=== PATIENT | male | born 1990 | race Caucasian/White ===

== ENCOUNTER 2024-08-31 12:05 | Inpatient (IN) | payer BC ==
--- NOTE | 2024-08-31 12:31 | ED ---
Psych HPI - General Source: patient, RN notes reviewed Mode of arrival: ambulatory <China Mendez - Last Filed: 08/31/24 12:30> <Florida Mayer - Last Filed: 09/01/24 16:19> - General Chief Complaint: Psychiatric Symptoms Stated Complaint: Back Pain Time Seen by Provider: 08/31/24 12:30 - History of Present Illness Initial Comments: Quick note: 33-year-old male presented the ER for evaluation of SI. Patient states he is recently and very depressed due to this. No plan. Patient does smoke marijuana. No other drugs or alcohol. No current pain. (China Mendez) Patient is a pleasant 33-year-old male presenting today for suicidal thoughts. Patient's him unexpectedly about 2 to 3 months ago. Since then he has been thinking of killing himself. The thoughts become more persistent and is having difficulty sleeping. He does not have a specific plan in place but feels scared that he will harm himself. Denies any illicit drug use or alcohol use today. Was smoking marijuana about 2 weeks ago. Says that he has been seen in the hospital for similar issues in the past. He is not currently on any medications. He is does not have access to weapons. Denies thoughts of wanting to harm or kill others. Denies auditory or visual hallucinations. Denies fevers, headache, focal numbness or weakness, chest pain or additional complaints. (Florida Mayer) - Related Data Home Medications Medication Instructions Recorded Confirmed No Known Home Medications 08/31/24 08/31/24 Allergies Allergy/AdvReac Type Severity Reaction Status Date / Time No Known Allergies Allergy Verified 08/31/24 17:38 Review of Systems ROS Other: All systems not noted in ROS Statement are negative. <China Mendez - Last Filed: 08/31/24 12:30> ROS Other: All systems not noted in ROS Statement are negative. <Florida Mayer - Last Filed: 09/01/24 16:19> ROS Statement: Those systems with pertinent positive or pertinent negative responses have been documented in the HPI. Past Medical History Past Medical History: No Reported History History of Any Multi-Drug Resistant Organisms: None Reported Past Surgical History: No Surgical Hx Reported Past Psychological History: No Psychological Hx Reported Smoking Status: Current every day smoker Past Alcohol Use History: Occasional Past Drug Use History: Marijuana <China Mendez - Last Filed: 08/31/24 12:30> General Exam Limitations: no limitations <China Mendez - Last Filed: 08/31/24 12:30> <Florida Mayer - Last Filed: 09/01/24 16:19> - General Exam Comments Initial Comments: Visual Physical Exam Vital signs reviewed General: Well-appearing, nontoxic, no acute distress. Withdrawn Head: Normocephalic, atraumatic Eyes: PERRLA, EOMI ENT: Airway patent Chest: Nonlabored breathing Skin: No visual rash, normal skin tone Neuro: Alert and oriented 3 Musculoskeletal: No gross abnormalities (China Mendez) Vital signs reviewed General: Well-appearing, nontoxic, no acute distress. Head: Normocephalic, atraumatic Eyes: PERRLA, EOMI ENT: Airway patent Chest: Nonlabored breathing, lungs clear to auscultation bilaterally, no wheezes rales rhonchi or stridor Skin: No visual rash, normal skin tone Neuro: Alert and oriented 3 Psychiatric: Calm and cooperative, makes poor eye contact, withdrawn and depressed affect, does not appear to be responding internal stimuli Musculoskeletal: No gross abnormalities (Florida Mayer) Course Vital Signs 08/31/24 08/31/24 08/31/24 12:07 15:55 18:07 Temperature 97.9 F 98.6 F Pulse Rate 86 73 76 Respiratory 18 20 16 Rate Blood Pressure 144/90 120/74 120/69 O2 Sat by Pulse 98 99 96 Oximetry Medical Decision Making <China Mendez - Last Filed: 08/31/24 12:30> - Lab Data Result diagrams: 09/01/24 09:11 09/01/24 09:11 <Florida Mayer - Last Filed: 09/01/24 16:19> - Medical Decision Making I performed the quick note portion of this chart. Electronically signed by China Mendez PA-C (China Mendez) Was pt. sent in by a medical professional or institution (COBY Davis, COMPARATOR OPERATOR, urgent care, hospital, or halfway...) When possible be specific @ -No Did you speak to anyone other than the patient for history (EMS, parent, family, police, friend...)? What history was obtained from this source @ -No Did you review nursing and triage notes (agree or disagree)? Why? @ -I reviewed nursing and triage notes Were old charts reviewed (outside hosp., previous admission, EMS record, old EKG, old radiological studies, urgent care reports/EKG's, halfway records)? Report findings @ -Medical records reviewed no recent visits to emergency department to review Differential Diagnosis (chest pain, altered mental status, abdominal pain women, abdominal pain men, vaginal bleeding, weakness, fever, dyspnea, syncope, headache, dizziness, GI bleed, back pain, seizure, CVA, palpatations, mental health, musculoskeletal)? @Differential Mental Health Depression, anxiety, bipolar, psychosis, schizophrenia, borderline personality, situational depression, adjustment disorder, behavioral disorder, brain tumor, malingering, substance abuse, encephalopathy, medication reaction, dementia, hypothyroidism, degenerative neurologic disorder, lupus.... This is not meant to be all-inclusive list EKG interpreted by me (3pts min.). @ -As above X-rays interpreted by me (1pt min.). @ -None done CT interpreted by me (1pt min.). @ -None done U/S interpreted by me (1pt. min.). @ -None done What testing was considered but not performed or refused? (CT, X-rays, U/S, labs)? Why? @ -None What meds were considered but not given or refused? Why? @ -None Did you discuss the management of the patient with other professionals (professionals i.e. , PA, COMPARATOR OPERATOR, lab, RT, psych nurse, high school social science teacher, information systems supervisor, teacher, community service officer, case assistant)? Give summary @Case discussed with RODRÍGUEZ Stein RN, patient will be voluntarily admitted to inpatient psychiatric floor Was smoking cessation discussed for >3mins.? @ -No Was critical care preformed (if so, how long)? @ -No Were there social determinants of health that impacted care today? How? (Homelessness, low income, unemployed, alcoholism, drug addiction, transportation, low edu. Level, literacy, decrease access to med. care, long term, rehab)? @ -No Was there de-escalation of care discussed even if they declined (Discuss DNR or withdrawal of care, Hospice)? @ -No What co-morbidities impacted this encounter? (DM, HTN, Smoking, COPD, CAD, Cancer, CVA, ARF, Chemo, Hep., AIDS, mental health diagnosis, sleep apnea, morbid obesity)? @ no Was patient admitted / discharged? Hospital course, mention meds given and route, prescriptions, significant lab abnormalities, going to OR and other pertinent info. @ -Admission to inpatient psych -this is a pleasant 33-year-old gentleman presenting today for suicidal thoughts. Patient seen and assessed in a hallway bed and was agreeable with providing history and having physical exam obtained in hallway. He does have a depressed and withdrawn affect and makes poor eye contact. He is calm and cooperative and does not appear to be responding to internal stimuli. Discussed with patient plan for EPS evaluation. He is agreeable plan of care. Pt evaluated by EPS RN. Patient will be voluntarily admitted to inpatient psychiatric floor. Patient admitted in stable condition Undiagnosed new problem with uncertain prognosis? @ -No Drug Therapy requiring intensive monitoring for toxicity (Heparin, Nitro, Insulin, Cardizem)? @ -No Were any procedures done? @ -No Diagnosis/symptom? Suicidal ideation Acute, or Chronic, or Acute on Chronic? @Acute Uncomplicated (without systemic symptoms) or Complicated (systemic symptoms)? @Uncomplicated Side effects of treatment? @ -No Exacerbation, Progression, or Severe Exacerbation? @ -No Poses a threat to life or bodily function? How? (Chest pain, [place], [place], pneumonia, PE, COPD, DKA, ARF, appy, cholecystitis, CVA, Diverticulitis, Homicidal, Suicidal, threat to staff... and all critical care pts) @ -Yes (Florida Mayer) - Lab Data Lab Results 08/31/24 08/31/24 Range/Units 15:34 16:55 Urine Opiates Screen Not Detected (NotDetected) Ur Oxycodone Screen Not Detected (NotDetected) Urine Methadone Screen Not Detected (NotDetected) Ur Barbiturates Screen Not Detected (NotDetected) U Tricyclic Antidepress Not Detected (NotDetected) Ur Phencyclidine Scrn Not Detected (NotDetected) Ur Amphetamines Screen Not Detected (NotDetected) U Methamphetamines Scrn Not Detected (NotDetected) U Benzodiazepines Scrn Not Detected (NotDetected) Urine Cocaine Screen Not Detected (NotDetected) U Marijuana (THC) Screen Detected H (NotDetected) SARS-CoV-2 (PCR) Not Detected (Not Detectd) Disposition <China Mendez - Last Filed: 08/31/24 12:30> <Florida Mayer - Last Filed: 09/01/24 16:19> Clinical Impression: Suicidal ideation, Depression Disposition: TRANSFER TO PSYCH HOSP/UNIT Condition: Stable
[2024-08-31 15:52] LABS: Amphetamine Screen,Urine Not Detected (NotDetected); Barbiturate Screen,Urine Not Detected (NotDetected); Benzodiazepines Screen,Urine Not Detected (NotDetected); Cocaine Screen,Urine Not Detected (NotDetected); Methadone Screen, Urine Not Detected (NotDetected); Opiate Screen,Urine Not Detected (NotDetected); Oxycodone Screen, Urine Not Detected (NotDetected); Phencyclidine Screen,Urine Not Detected (NotDetected); Tricyclic Antidepressant,Urine Not Detected (NotDetected); Urn Cannabinoid Scrn Detected (NotDetected)
[2024-08-31] MEDS ORDERED: MAGNESIUM HYDROXIDE 2,400 MG/30 ML CUP PO PRN (18:42)
[2024-08-31] MEDS ORDERED: ACETAMINOPHEN TAB 325 MG TAB PO PRN (18:42)
[2024-08-31] MEDS ORDERED: MAG HYDROX/AL HYDROX/SIMETH 355 ML BOTTLE PO PRN (18:42)
[2024-08-31] MEDS ORDERED: IBUPROFEN 600 MG TAB PO PRN (18:42)
[2024-08-31] MEDS ORDERED: LORazepam 2 MG/ML INJ IM PRN (18:44)
[2024-08-31] MEDS ORDERED: HALOPERIDOL LACTATE 5 MG/ML 1 ML VIAL IM PRN (18:44)
[2024-08-31] MEDS ORDERED: haloperidoL 5 MG TAB PO PRN (18:44)
[2024-08-31] MEDS ORDERED: LORazepam 1 MG TAB PO PRN (18:44)
[2024-08-31 21:46] LABS: Appearance,Urine Clear (Clear); Bilirubin,Urine Negative (Negative); Blood,Urine Negative (Negative); Color,Urine Light Yellow; Glucose,Urine (UA) Negative (Negative); Ketones,Urine Trace (Negative); Leukocyte Esterase,Urine Negative (Negative); Nitrite,Urine Negative (Negative); Protein,Urine Negative (Negative); Specific Gravity,Urine 1.015 (1.001-1.035); Urobilinogen,Urine <2.0 mg/dL (<2.0)
[2024-09-01 10:10] LABS: Basophils % (A) 1 %; Eosinophils # (A) 0.2 k/uL (0-0.7); Eosinophils % (A) 2 %; HCT 52.5 % (39.0-53.0); HGB 16.8 gm/dL (13.0-17.5); Lymphocytes # (A) 1.7 k/uL (1.0-4.8); Lymphocytes % (A) 25 %; MCH 29.5 pg (25.0-35.0); MCHC 31.9 g/dL (31.0-37.0); MCV 92.3 fL (80.0-100.0); Mean Platelet Volume 7.2; Monocytes # (A) 0.4 k/uL (0-1.0); Monocytes % (A) 6 %; Neutrophils # (A) 4.5 k/uL (1.3-7.7); Neutrophils % (A) 65 %; Platelet Count 229 k/uL (150-450); RBC 5.69 m/uL (4.30-5.90); RDW 12.8 % (11.5-15.5)
[2024-09-01 10:54] LABS: ALT 17 U/L (4-49); AST 20 U/L (17-59); African American GFR (CKD) >90 (>60 ml/min/1.73 sqM); Alkaline Phosphatase 58 U/L (38-126); Anion Gap 11 mmol/L; Blood Urea Nitrogen 20 mg/dL (9-20); Calcium 9.8 mg/dL (8.4-10.2); Carbon Dioxide 30 mmol/L (22-30); Chloride 101 mmol/L (98-107); Glucose 94 mg/dL (74-99); Non-African American GFR(CKD) >90 (>60 ml/min/1.73 sqM); Potassium 4.2 mmol/L (3.5-5.1); Sodium 142 mmol/L (137-145); Total Bilirubin 0.8 mg/dL (0.2-1.3); Total Protein 7.4 g/dL (6.3-8.2)
--- NOTE | 2024-09-01 11:57 | P.HP ---
Psychiatric H&P - . H&P Date: 09/01/24 History & Physical: Allergies Allergy/AdvReac Type Severity Reaction Status Date / Time No Known Allergies Allergy Verified 08/31/24 17:38 Vital Signs Temp 98.1 F 08/31/24 19:29 Pulse 64 08/31/24 19:29 Resp 16 08/31/24 19:29 BP 113/64 08/31/24 19:29 Pulse Ox 98 08/31/24 19:29 FiO2 Intake & Output 08/31/24 09/01/24 09/01/24 18:59 06:59 18:59 Weight 58.967 kg 57.238 kg Laboratory Last Values WBC 7.0 k/uL (3.8-10.6) 09/01/24 09:11 RBC 5.69 m/uL (4.30-5.90) 09/01/24 09:11 Hgb 16.8 gm/dL (13.0-17.5) 09/01/24 09:11 Hct 52.5 % (39.0-53.0) 09/01/24 09:11 MCV 92.3 fL (80.0-100.0) 09/01/24 09:11 MCH 29.5 pg (25.0-35.0) 09/01/24 09:11 MCHC 31.9 g/dL (31.0-37.0) 09/01/24 09:11 RDW 12.8 % (11.5-15.5) 09/01/24 09:11 Plt Count 229 k/uL (150-450) 09/01/24 09:11 MPV 7.2 09/01/24 09:11 Neutrophils % 65 % 09/01/24 09:11 Lymphocytes % 25 % 09/01/24 09:11 Monocytes % 6 % 09/01/24 09:11 Eosinophils % 2 % 09/01/24 09:11 Basophils % 1 % 09/01/24 09:11 Neutrophils # 4.5 k/uL (1.3-7.7) 09/01/24 09:11 Lymphocytes # 1.7 k/uL (1.0-4.8) 09/01/24 09:11 Monocytes # 0.4 k/uL (0-1.0) 09/01/24 09:11 Eosinophils # 0.2 k/uL (0-0.7) 09/01/24 09:11 Basophils # 0.0 k/uL (0-0.2) 09/01/24 09:11 Sodium 142 mmol/L (137-145) 09/01/24 09:11 Potassium 4.2 mmol/L (3.5-5.1) 09/01/24 09:11 Chloride 101 mmol/L (98-107) 09/01/24 09:11 Carbon Dioxide 30 mmol/L (22-30) 09/01/24 09:11 Anion Gap 11 mmol/L 09/01/24 09:11 BUN 20 mg/dL (9-20) 09/01/24 09:11 Creatinine 0.98 mg/dL (0.66-1.25) 09/01/24 09:11 Est GFR (CKD-EPI)AfAm >90 (>60 ml/min/1.73 sqM) 09/01/24 09:11 Est GFR (CKD-EPI)NonAf >90 (>60 ml/min/1.73 sqM) 09/01/24 09:11 Glucose 94 mg/dL (74-99) 09/01/24 09:11 Calcium 9.8 mg/dL (8.4-10.2) 09/01/24 09:11 Total Bilirubin 0.8 mg/dL (0.2-1.3) 09/01/24 09:11 AST 20 U/L (17-59) 09/01/24 09:11 ALT 17 U/L (4-49) 09/01/24 09:11 Alkaline Phosphatase 58 U/L (38-126) 09/01/24 09:11 Total Protein 7.4 g/dL (6.3-8.2) 09/01/24 09:11 Albumin 5.0 g/dL (3.5-5.0) 09/01/24 09:11 Urine Color Light Yellow 08/31/24 18:44 Urine Appearance Clear (Clear) 08/31/24 18:44 Urine pH 6.0 (5.0-8.0) 08/31/24 18:44 Ur Specific [place] 1.015 (1.001-1.035) 08/31/24 18:44 Urine Protein Negative (Negative) 08/31/24 18:44 Urine Glucose (UA) Negative (Negative) 08/31/24 18:44 Urine Ketones Trace (Negative) H 08/31/24 18:44 Urine Blood Negative (Negative) 08/31/24 18:44 Urine Nitrite Negative (Negative) 08/31/24 18:44 Urine Bilirubin Negative (Negative) 08/31/24 18:44 Urine Urobilinogen <2.0 mg/dL (<2.0) 08/31/24 18:44 Ur Leukocyte Esterase Negative (Negative) 08/31/24 18:44 Urine Opiates Screen Not Detected (NotDetected) 08/31/24 15:34 Ur Oxycodone Screen Not Detected (NotDetected) 08/31/24 15:34 Urine Methadone Screen Not Detected (NotDetected) 08/31/24 15:34 Ur Barbiturates Screen Not Detected (NotDetected) 08/31/24 15:34 U Tricyclic Antidepress Not Detected (NotDetected) 08/31/24 15:34 Ur Phencyclidine Scrn Not Detected (NotDetected) 08/31/24 15:34 Ur Amphetamines Screen Not Detected (NotDetected) 08/31/24 15:34 U Methamphetamines Scrn Not Detected (NotDetected) 08/31/24 15:34 U Benzodiazepines Scrn Not Detected (NotDetected) 08/31/24 15:34 Urine Cocaine Screen Not Detected (NotDetected) 08/31/24 15:34 U Marijuana (THC) Screen Detected (NotDetected) H 08/31/24 15:34 SARS-CoV-2 (PCR) Not Detected (Not Detectd) 08/31/24 16:55 09/01/24 11:04 IDENTIFYING DATA: Patient is a 33-year-old male, living with parents, employed CHIEF COMPLAINT: SI HPI: Patient presented to the hospital with suicidal thoughts. Per EPS, "Pt brought self to ER d/t increased depression and SI. Pt states it is all stemming from being blindsided by a divorce. Pt states that he has been living with his mother for now. He is not sleeping more than 3 hours a night. He is restless, peterson ving a hard time falling and staying asleep, struggling with racing thoughts. He states he mainly has his SI in the mornings and at night. Pt has poor eye contact and slightly guarded. Pt is worried for his safety, he fears he will kill him self. Pt admits to SI but not specific plan. When asked plan pt looks down and states, "I don't know, but I don't feel safe". No previous attempts but states he was close to doing it about 10 years ago. Pt denies HI, hallucinations, or delusions. Pt is barely eating a meal a day and has poor sleep. Pt is calling into work and finding it hard to function. Pt is feeling helpless and hopeless. He is NOT finding darek in anything anymore. Pt denies ETOH, states he smokes a hit or 2 or marijuana almost nightly. Denies any medical conditions. Denies access to guns. Denies having any supports to talk. He feels his first apt today with peer psychiatry was rough, he was feeling worse after having to talk about his recent divorce. Pt has a great risk of harm to self." Patient seen and evaluated on the unit and was agreeable with speaking to manual writer in office. He states being blindsided by his asking for divorce 2 months ago. He states they attend marital counseling and he thought their issues were fixable. He states they have been for 4-1/2 years and they have a son together. He states leaving his house to her and that he moved in with his parents however he states this time every night before bed. He reports sleep and appetite difficulties, low energy, anhedonia, poor concentration. He also reports feeling on edge and racing thoughts. Patient denies any suicidal or homicidal ideations intent or plan. At this time patient denies any auditory or visual hallucinations. Patient denies any flight of ideas racing thoughts and increased in goal directed behavior. Patient admits to using occasional cannabis, smoking 1 pack/day, denying any alcohol use. PAST PSYCHIATRIC HISTORY: Patient has a history of depression. Patient denies being on any psychiatric medications. He has tried Zoloft in the past. He reports 1 inpatient hospitalization roughly 13 years ago. Patient denies any psychiatric outpatient follow-up. Patient denies any history of suicide attempts in the past. PMH: as per ER note ALLERGIES: as per EMR SUBSTANCE USE HISTORY: Patient smokes 1 pack/day, occasional cannabis FAMILY PSYCHIATRIC/SUBSTANCE USE HISTORY: Reports his mother and brother both have depression and that his aunt has schizophrenia SOCIAL HISTORY: Patient recently moved in with his parents given the divorce, he has 1 son who lives with his ex. He is employed at [employer]. MENTAL STATUS EXAM: General Appearance: Patient appears to be stated age is alert, directable, and attempts to cooperate. Patient appears to have fair hygiene and grooming. He wears glasses Behavior: Patient is seated without any agitated behavior. Downcast eye contact Speech: Patient's speech is fluent and nonpressured. Mood/Affect: Patient reports their mood is depressed, affect is congruent and flat. Suicidality/Homicidality: Patient denies having any homicidal ideation intent or plan. Denies any suicidal ideations intent or plan Perceptions: Patient denies any visual hallucinations and denies any auditory hallucinations Though content/process: There is no evidence of any delusional thought content and thought process is linear and logical. Memory and concentration: AOX3, grossly intact for the purposes of this session. Can spell "WORLD" backwards Judgment and insight: Fair STRENGTHS/WEAKNESSES: strength is that patient is resilient, is employed and has family support. Weakness is that patient has poor judgment and is newly INTELLECT: Average IMPRESSIONS: Major depressive disorder, recurrent, moderate with anxious distress Cannabis use disorder, mild Nicotine dependence PLAN: -Patient is admitted under voluntary status to MHU for stabilization of psychiatric symptoms and safety. Patient has signed adult voluntary form and medication consent and is placed in patient's chart. -Medications : Start Prozac 20 mg daily for depression -Ativan and Haldol PRN for agitation/aggression -Patient was counselled on substance abuse and desired to cut back on use -Patient was informed of the risks, benefits and side effects of the medication and patient verbally consented to taking the medications. Patient signed med consent form and was placed in chart. -Internal Medicine consult to perform medical evaluation and physical. -NRT -nicotine patch -SW on board for discharge planning. Encourage patient to participate in groups to work on coping skills.
[2024-09-01 12:53] VITALS: BMI 18.1
[2024-09-01] MEDS: FLUoxetine HCL 20 MG CAP PO SCH (13:02)
[2024-09-01] MEDS: NICOTINE 21MG/24HR PATCH TRANSDERM SCH (18:51)
--- NOTE | 2024-09-02 15:08 | P.PN ---
Subjective Progress Note Date: 09/02/24 Principal diagnosis: major depression recurrent nonpsychotic severe Cannabis use disorder subjective the patient still quite depressed and beginning to remember that he has friends and family and, "pretty decent support system. Patient came readily when asked him to talk to me he was walking in the knowles. He says he is eating well and sleeping better. He reviewed the fact that his has left him after 8 years they have a son in common whose for any thought for a while but there was some hope and they're going to counseling and he was going over at night to cook and clean help take care of his son but recently she said no is just over. And that seemed to plunge him into depression.he says that he is tolerating the Prozac well MENTAL STATUS EXAM: poor eye contact General Appearance: Patient appears to be stated age is alert, directable, and attempts to cooperate. Patient appears to have fair hygiene and grooming. He wears glasses Behavior: Patient is seated without any agitated behavior. Downcast eye contact Speech: Patient's speech is fluent and nonpressured. Mood/Affect: Patient reports their mood is depressed, affect is sad Suicidality/Homicidality: Patient denies having any homicidal ideation intent or plan. Denies any suicidal ideations intent or plan Perceptions: Patient denies any visual hallucinations and denies any auditory hallucinations Though content/process: There is no evidence of any delusional thought content and thought process is linear and logical. Memory and concentration: AOX3, grossly intact for the purposes of this session. Can spell "WORLD" backwards Judgment and insight: Fair STRENGTHS/WEAKNESSES: strength is that patient is resilient, is employed and has family support. Weakness is that patient has poor judgment and is newly INTELLECT: Average IMPRESSIONS: Major depressive disorder, recurrent, moderate with anxious distress Cannabis use disorder, mild Nicotine dependence PLAN: no change at this point I did some educating on how long it takes Prozac to work what they expected benefit his and to watch out for the possibility of needing to add something like Wellbutrin for focus and energy -Patient is admitted under voluntary status to MHU for stabilization of psychiatric symptoms and safety. Patient has signed adult voluntary form and medication consent and is placed in patient's chart. -Medications : Start Prozac 20 mg daily for depression -Ativan and Haldol PRN for agitation/aggression -Patient was counselled on substance abuse and desired to cut back on use -Patient was informed of the risks, benefits and side effects of the medication and patient verbally consented to taking the medications. Patient signed med consent form and was placed in chart. -Internal Medicine consult to perform medical evaluation and physical. -NRT -nicotine patch -SW on board for discharge planning. Encourage patient to participate in groups to work on coping skills. Objective - Vital Signs Vital signs: Vital Signs Temp 98.1 F 09/02/24 09:32 Pulse 82 09/02/24 09:32 Resp 20 09/02/24 09:32 BP 118/65 09/02/24 09:32 Pulse Ox 98 09/01/24 21:40 FiO2 Intake & Output 09/01/24 09/02/24 09/02/24 18:59 06:59 18:59 Weight 57.238 kg - Labs CBC & Chem 7: 09/01/24 09:11 09/01/24 09:11
--- NOTE | 2024-09-02 21:48 | P.MDCNMH ---
History of Present Illness H&P Date: 09/02/24 Patient is a 33-year-old male with no significant medical history who presented for evaluation of mental health needs. Medicine was consulted for medical evaluation. He is feeling well and has no complaints. Patient denies fever, chest pain, shortness of breath, abdominal pain, dysuria. Patient is afebrile, blood pressure 118/65, pulse 82, O2 saturation 98 % on room air. UA unremarkable, urine toxicology with marijuana, TSH 0.453 is decreased and free T4 1.24 is WNL. No imaging to review. Social history: Patient endorses daily tobacco use, denies alcohol and recreational drug use. Review of systems: Reviewed, pertinent positive negatives as per HPI Gen: In NAD, non-toxic HEENT: normocephalic, atraumatic, hearing acuity is intact, mucous membranes moist CVS: perfusing all extremities well, no pitting edema Respiratory: symmetric chest expansion, no accessory muscle use GI: soft, NTTP, ND : no suprapubic tenderness, no CVA tenderness MSK/Derm: no rashes, cyanosis Neuro: CN II-XII intact, no motor weakness Assessment/plan: No active medical problems. No need for further labs or imaging. #MDD -Management per primary psychiatry service Thank you for this consult, please reach out if any further questions/concerns. Past Medical History Past Medical History: No Reported History History of Any Multi-Drug Resistant Organisms: None Reported Past Surgical History: No Surgical Hx Reported Smoking Status: Current some day smoker Medications and Allergies Home Medications Medication Instructions Recorded Confirmed Type No Known Home Medications 08/31/24 08/31/24 History Allergies Allergy/AdvReac Type Severity Reaction Status Date / Time No Known Allergies Allergy Verified 08/31/24 17:38 Physical Exam Vitals: Vital Signs Temp Pulse Resp BP 09/02/24 09:32 98.1 F 82 20 118/65 Cranial Nerve Examination - Cranial Nerves Cranial Nerve II- Optic: Intact Cranial Nerve III- Oculomotor: Intact Cranial Nerve IV- Trochlear: Intact Cranial Nerve V- Trigeminal: Intact Cranial Nerve - Abducens: Intact Cranial Nerve VII- Facial: Intact Cranial Nerve VIII- Auditory: Intact Cranial Nerve IX- Glossopharyngeal: Intact Cranial Nerve X- Vagus: Intact Cranial Nerve XI- Accessory: Intact Cranial Nerve XII- Hypoglossal: Intact Results CBC & Chem 7: 09/01/24 09:11 09/01/24 09:11
--- NOTE | 2024-09-03 09:15 | P.PN ---
Subjective Progress Note Date: 09/03/24 Principal diagnosis: major depression recurrent nonpsychotic severe Cannabis use disorder Subjective: the patientis still quite depressed but is feeling more hopeful. Patient came readily when asked him to talk to me he was waiting for his morning medications. He says he is eating well and sleeping better. MENTAL STATUS EXAM:improved eye contact General Appearance: Patient appears to be stated age is alert, directable, and attempts to cooperate. Patient appears to have fair hygiene and grooming. He wears glasses Behavior: Patient is seated without any agitated behavior. Downcast eye contact Speech: Patient's speech is fluent and nonpressured. Mood/Affect: Patient reports their mood is depressed, affect is sadbut he was able to smile shows sense of humor which he couldn't yesterday Suicidality/Homicidality: Patient denies having any homicidal ideation intent or plan. Denies any suicidal ideations intent or plan Perceptions: Patient denies any visual hallucinations and denies any auditory hallucinations Though content/process: There is no evidence of any delusional thought content and thought process is linear and logical. Memory and concentration:he paid good attention and followed the conversation well Judgment and insight: Fair STRENGTHS/WEAKNESSES: strength is that patient is resilient, is employed and has family support. Weakness is that patient has poor judgment and is newly IMPRESSIONS: Major depressive disorder, recurrent, nonpsychotic moderate with anxious distress Cannabis use disorder, mild Nicotine dependence PLAN: no change at this point I did some educating on how long it takes Prozac takes to work, and what he would experience if it works to well, and what the expected benefit is and to watch out for the possibility of needing to add something like Wellbutrin for focus and energy. I encouraged him to work with his doctors to adjust but that the medicine is a good one he just needs to be patient. -Patient is admitted under voluntary status to [facility] for stabilization of psychiatric symptoms and safety. Patient has signed adult voluntary form and medication consent and is placed in patient's chart. -Medications : Start Prozac 20 mg daily for depression -Ativan and Haldol PRN for agitation/aggression -Patient was counselled on substance abuse and desired to cut back on use -Patient was informed of the risks, benefits and side effects of the medication and patient verbally consented to taking the medications. Patient signed med consent form and was placed in chart. -Internal Medicine consult to perform medical evaluation and physical. -NRT -nicotine patch -SW on board for discharge planning. Encourage patient to participate in groups to work on coping skills.S Objective - Vital Signs Vital signs: Vital Signs Temp 98.1 F 09/02/24 09:32 Pulse 82 09/02/24 09:32 Resp 20 09/02/24 09:32 BP 118/65 09/02/24 09:32 Pulse Ox 98 09/01/24 21:40 FiO2 Intake & Output 09/02/24 09/03/24 09/03/24 18:59 06:59 18:59 Weight 57.238 kg - Labs CBC & Chem 7: 09/01/24 09:11 09/01/24 09:11
[2024-09-04 09:56] VITALS: BP 101/67; PULSE 126; RESP 16; TEMP 97.8
--- NOTE | 2024-09-04 13:59 | P.DS ---
Providers Date of admission: 08/31/24 18:25 Expected date of discharge: 09/04/24 Attending physician: Aicha Gonzalez MD Consults: 08/31/24 18:42 Consult Physician Routine Consulting Provider: Papo Physician Consult Reason/Comments: H&P Do you want consulting provider notified?: Yes Primary care physician: Santiago Tillman - Discharge Diagnosis(es) (1) Major depressive disorder, single episode with anxious distress Status: Acute Priority: High (2) Cannabis use disorder, mild, abuse Status: Acute Priority: Low (3) Nicotine dependence Status: Acute Priority: Low Hospital Course: Admission HPI: Admission note was completed by fiction writer "Patient presented to the hospital with suicidal thoughts. Per EPS, "Pt brought self to ER d/t increased depression and SI. Pt states it is all stemming from being blindsided by a divorce. Pt states that he has been living with his mother for now. He is not sleeping more than 3 hours a night. He is restless, having a hard time falling and staying asleep, struggling with racing thoughts. He states he mainly has his SI in the mornings and at night. Pt has poor eye contact and slightly guarded. Pt is worried for his safety, he fears he will kill him self. Pt admits to SI but not specific plan. When asked plan pt looks down and states, "I don't know, but I don't feel safe". No previous attempts but states he was close to doing it about 10 years ago. Pt denies HI, hallucinations, or delusions. Pt is barely eating a meal a day and has poor sleep. Pt is calling into work and finding it hard to function. Pt is feeling helpless and hopeless. He is NOT finding darek in anything anymore. Pt denies ETOH, states he smokes a hit or 2 or marijuana almost nightly. Denies any medical conditions. Denies access to guns. Denies having any supports to talk. He feels his first apt today with peer psychiatry was rough, he was feeling worse after having to talk about his recent divorce. Pt has a great risk of harm to self." Patient seen and evaluated on the unit and was agreeable with speaking to fiction writer in office. He states being blindsided by his asking for divorce 2 months ago. He states they attend marital counseling and he thought their issues were fixable. He states they have been for 4-1/2 years and they have a son together. He states leaving his house to her and that he moved in with his parents however he states this time every night before bed. He reports sleep and appetite difficulties, low energy, anhedonia, poor concentration. He also reports feeling on edge and racing thoughts. Patient denies any suicidal or homicidal ideations intent or plan. At this time patient denies any auditory or visual hallucinations. Patient denies any flight of ideas racing thoughts and increased in goal directed behavior. Patient admits to using occasional cannabis, smoking 1 pack/day, denying any alcohol use." Hospital course: Upon admission to the unit patient was directable and agreeable to commence treatment and signed adult voluntary form.. Patient got along well with other patients on the unit and followed unit protocol. Patient was compliant with the medications and denied any side effects throughout hospital course. Patient was started on Prozac 20 mg daily for depression. Patient spoke of his stressors and engaged in therapy both group and individual. Patient was also seen by medical team for history and physical exam. Throughout the course of the hospitalization patient gradually improved with regards to mood, anxiety, sleep and returned back to their baseline level of functioning. On the day of discharge patient denied any suicidal or homicidal ideations intent or plan denied any auditory or visual hallucinations. The patient denied any access to guns or weapons. Patient denied any paranoia and did not endorse any delusions. Patient does have a significant history of substance abuse and was counseled on abstaining from all substances including alcohol and marijuana. Patient was also counseled on the medications and need for regular compliance and was encouraged to follow-up with their outpatient appointment for mental health and also for [facility] care. Prior to discharge a family meeting will be arranged by social scientist to answer any questions and ensure safety upon discharge including making sure that guns/weapons are either removed from the home or locked away. Patient to be discharged back home with parents and will follow-up with [facility]. Mental status exam: General Appearance: Patient appears to be stated age is alert, pleasant, and cooperative. Patient is in no acute distress and has improved hygiene and grooming Behavior: Patient is calmly seated without any agitated behavior. Speech: Patient's speech is fluent and nonpressured. Mood/Affect: Patient reports their mood is "good", affect is congruent and euthymic. Suicidality/Homicidality: Patient denies having any suicidal or homicidal ideation intent or plan. Perceptions: Patient denies any auditory or visual hallucinations. Though content/process: There is no evidence of any delusional thought content and thought process is linear and goal-directed. More future oriented Memory and concentration: AOX3, grossly intact for the purposes of this session. Can spell "WORLD" backwards correctly. Judgment and insight: Good Impression: Major depressive disorder, recurrent, moderate with anxious distress Cannabis use disorder, mild Nicotine dependence Plan: -Continue with discharge today as patient has improved and stabilized psychiatrically and is not currently an imminent threat to themself and/or others. -Continue medications: Prozac 20 mg daily -Patient was counseled on the need for medication compliance and appropriate follow-up at mental health and also primary care for medical issues. Patient verbalized understanding and agreed. -Social work to help coordinate patients discharge today arrange for and conduct family meeting to ensure safety upon discharge and answer any questions/concerns. also to ensure safe home environment that guns/weapons are either removed from the home or locked away. Social work also to arrange for p atients follow up appointments with [facility] for psychiatric care along with follow up with primary care provider. -Patient counseled on abstaining from recreational drugs and marijuana and alc ohol. Was informed/educated on the adverse effects on their physical and mental health. Patient verbally agreed and understood. -Patient was instructed to return to the hospital or seek immediate medical care if their psychiatric or medical symptoms do worsen or reoccur. Abnormal Labs 08/31/24 08/31/24 09/01/24 15:34 18:44 09:11 TSH 0.453 L Urine Ketones Trace H U Marijuana (THC) Screen Detected H Vital Signs Temp 97.8 F 09/04/24 09:54 Pulse 126 H 09/04/24 09:54 Resp 16 09/04/24 09:54 BP 101/67 09/04/24 09:54 Pulse Ox 99 09/04/24 09:54 FiO2 Intake & Output 09/03/24 09/04/24 09/04/24 18:59 06:59 18:59 Weight 58.5 kg Allergies Allergy/AdvReac Type Severity Reaction Status Date / Time No Known Allergies Allergy Verified 08/31/24 17:38 Patient Condition at Discharge: Stable Plan - Discharge Summary Discharge Rx Participant: Yes New Discharge Prescriptions: New Nicotine 21Mg/24Hr Patch [Habitrol] 1 patch TRANSDERM DAILY patch FLUoxetine HCL [PROzac] 20 mg PO DAILY 30 Days #30 cap Discharge Medication List FLUoxetine HCL [PROzac] 20 mg PO DAILY 30 Days #30 cap 09/04/24 [Rx] Nicotine 21Mg/24Hr Patch [Habitrol] 1 patch TRANSDERM DAILY patch 09/04/24 [Rx] Follow up Appointment(s)/Referral(s): Psychiatry, [facility] [Other] - 09/06/24 2:30 pm (09/06 @ 14:30 w/ MANNEQUIN MAKER Shayna Guerra 09/07 @ 09:00 lizabeth Cooper therapist) Jasmeet Tillman MD [STAFF PHYSICIAN] - 1 Week Patient Instructions/Handouts: Depression (DC), Suicide Prevention (DC) Activity/Diet/Wound Care/Special Instructions: [facility] Discharge Info Avoid the use of street drugs and alcohol. Take all medications as prescribed. When you are in need of refills on your medications, please contact your [facility] medical provider and/or outpatient psychiatrist. Please go to your scheduled outpatient appointments for aftercare treatment. If symptoms return or become worse, call the crisis line at or and/or visit the nearest emergency room for assistance. National Suicide and Crisis Lifeline - call or text 988 Discharge Disposition: HOME SELF-CARE
== END 2024-09-04 13:02 | disposition home or self-care (01) | DRG 885 ==
LOC: EC 12:05 → 3MHU 18:25
PROVIDERS: ADMIT Psychiatry & Neurology Psychiatry; ATTEND Psychiatry & Neurology Psychiatry
DX: F33.1 Major depressive disorder, recurrent, moderate (principal); R45.851 Suicidal ideations; F12.10 Cannabis abuse, uncomplicated; F17.210 Nicotine dependence, cigarettes, uncomplicated; Z79.899 Other long term (current) drug therapy; Z81.8 Family history of other mental and behavioral disorders
CPT/HCPCS: 80053; 80306; 81003; 82075; 83036; 84439; 84443; 85025; 87635; 99285